=== PATIENT | female | born 1935 | race Caucasian/White ===

== ENCOUNTER → 2016-07-20 16:34 | Outpatient (CLI) | payer MEDICARE, OTHER ==
[2013-11-11 06:41] VITALS: BMI 22.7
[~2016-07-20 16:34] MED LIST: BAYER ASPIRIN325 MG PO; CALCIUM 500 + D1 TAB PO; EVISTA60 MG PO; HYZAAR 100-25 T1 TAB PO; MULTI-DAY VITAM1 TAB PO; PRAVACHOL80 MG PO; TOPROL XL100 MG PO
== END | disposition home or self-care (01) ==
LOC: D.MAMMO 11:00
DX: Z12.31 Encounter for screening mammogram for malignant neoplasm of breast (principal)

== ENCOUNTER → 2017-07-23 13:05 | Outpatient (CLI) | payer MEDICARE, OTHER ==
[2013-11-11 06:41] VITALS: BMI 22.7
== END | disposition home or self-care (01) ==
LOC: D.MAMMO 13:05
DX: Z12.31 Encounter for screening mammogram for malignant neoplasm of breast (principal)

== ENCOUNTER → 2018-05-30 10:27 | Outpatient (CLI) | payer MEDICARE, OTHER ==
[2013-11-11 06:41] VITALS: BMI 22.7
--- NOTE | 2018-06-03 14:01 | EC ---
PATIENT:ABUNDIO JARAMILLO DATE OF SERVICE: 05/30/18 SEX: F MEDICAL RECORD: [id number] DATE OF : 35 LOCATION:D.FORMERLY [facility] AGE OF PATIENT: 82 ADMISSION DATE: 05/30/18 REFERRING PHYSICIAN: INTERPRETING PHYSICIAN: CARMEN BRITO MD ECHOCARDIOGRAM REPORT ECHO CHARGES 4 ECHO COMPLETE Date: 05/30/18 CLINICAL DIAGNOSIS: HTN ECHOCARDIOGRAPHIC MEASUREMENTS (adult normal given) AC root (d.<3.7cm) 3.2 cm LV Septum d (<1.2 cm> 1.3 cm Valve Excursion 1.4 cm LV Septum (systole) 1.5 cm Left Atria (s.<4.0cm> 2.9 cm LVPW d(<1.2cm) 1.3 cm RV (d.<2.3cm) 2.7 cm LVPW (sytole) 1.6 cm LV diastole(<5.6CM) 4.1 cm MV E-F(>70mm/sec) cm LV systole 3.3 cm LVOT Diameter 1.3 cm MV exc.(>10mm) 1.1 cm Est.ejection fraction (50-75%) % DOPPLER: LVIT cm/sec A 85.0 cm/sec E 93.0 cm/sec LA cm/sec RVSP 23 mmHg LVOT 120 cm/sec AOP1/2T m/s Asc. Ao 152 cm/sec RVOT 74 cm/sec RA cm/sec PA 103 cm/sec AV Gradient Peak 9.28 mmHg AV Mean 4.30 mmHg AV Area 1.5 cm MV Gradient Peak 3.73 mmHg MV Mean 1.50 mmHg MV Area cm COMMENTS: Inspector Automatic Typewriter: 2 CARISSA GROSSMAN Telecine Operator: 3 Dr. Veronica TAPE# PACS Pericardial Effusion N DATE OF SERVICE: 05/30/2018 Adequate 2-D echo, color flow and spectral Doppler, and M-mode. Borderline LVH. LV internal dimensions are normal. Wall motion is normal. EF is greater than or equal to 55%. Aortic valve sclerosis without stenosis by Doppler interrogation. Left atrium is normal at 3.9 cm. Mitral valve shows no prolapse. Trace MR. Right-sided chamber is grossly normal. Trace TR. TRANSINT:[id number] Voice Confirmation ID: [id number] DOCUMENT ID: [id number] ECHOCARDIOGRAM REPORT [id number] ABUNDIO JARAMILLO GREGORY A MD at 1401 CC: [id number] DICTATION DATE: 05/31/18 1233 JAILER/TRAINING OFFICER: 05/31/18 1415 DEP CLI 05/30/18 [id number] [place] [address]
== END | disposition home or self-care (01) ==
LOC: D.HCCARDIO 10:27
PROVIDERS: ATTEND Internal Medicine Interventional Cardiology
DX: I10 Essential (primary) hypertension (principal)

== ENCOUNTER → 2018-07-24 16:12 | Outpatient (CLI) | payer MEDICARE, OTHER ==
[2013-11-11 06:41] VITALS: BMI 22.7
== END | disposition home or self-care (01) ==
LOC: D.MAMMO 11:00
PROVIDERS: ATTEND Family Medicine
DX: Z12.31 Encounter for screening mammogram for malignant neoplasm of breast (principal)

== ENCOUNTER → 2019-06-02 12:49 | Outpatient (CLI) | payer MEDICARE, OTHER ==
[2013-11-11 06:41] VITALS: BMI 22.7
--- NOTE | 2019-06-04 11:41 | EC ---
PATIENT:ABUNDIO JARAMILLO DATE OF SERVICE: 06/02/19 SEX: F MEDICAL RECORD: [id number] DATE OF : 35 LOCATION:D.FORMERLY [facility] AGE OF PATIENT: 83 ADMISSION DATE: 06/02/19 REFERRING PHYSICIAN: INTERPRETING PHYSICIAN: CARMEN BRITO MD ECHOCARDIOGRAM REPORT ECHO CHARGES 4 ECHO COMPLETE Date: 06/02/19 CLINICAL DIAGNOSIS: MURMUR/AI H/O HTN/PVD ECHOCARDIOGRAPHIC MEASUREMENTS (adult normal given) AC root (d.<3.7cm) 2.8 cm LV Septum d (<1.2 cm> 1.1 cm Valve Excursion 1.4 cm LV Septum (systole) 1.6 cm Left Atria (s.<4.0cm> 3.2 cm LVPW d(<1.2cm) 1.1 cm RV (d.<2.3cm) 1.9 cm LVPW (sytole) 1.6 cm LV diastole(<5.6CM) 5.4 cm MV E-F(>70mm/sec) cm LV systole 3.5 cm LVOT Diameter 1.6 cm MV exc.(>10mm) cm Est.ejection fraction (50-75%) % DOPPLER: LVIT cm/sec A 87.0 cm/sec E 110 cm/sec LA cm/sec RVSP 36.1 mmHg LVOT 131 cm/sec AOP1/2T m/s Asc. Ao 177 cm/sec RVOT 55.0 cm/sec RA cm/sec PA 108 cm/sec AV Gradient Peak 13.0 mmHg AV Mean 5.8 mmHg AV Area 1.6 cm MV Gradient Peak 5.3 mmHg MV Mean 1.4 mmHg MV Area cm COMMENTS: OP - HC Base Cloth Inspector: 1 BARBI ANDREW Human Resources Benefits Administrator: 3 Dr. Veronica TAPE# PACS Pericardial Effusion N DATE OF SERVICE: Adequate 2D, color flow and spectral Doppler, and M-Mode. No LVH. LV internal dimension is normal. Wall motion is normal. EF is greater than or equal to 55%. Aortic valve is tricuspid. No evidence of stenosis by Doppler interrogation. Left atrium is normal. Mitral valve shows no prolapse. Trivial MR. Right-sided chambers are grossly normal. Trivial TR. TRANSINT:[id number] Voice Confirmation ID: [id number] DOCUMENT ID: [id number] ECHOCARDIOGRAM REPORT [id number] ABUNDIO JARAMILLO GREGORY A MD at 1141 CC: [id number] DICTATION DATE: 06/03/19 1303 TENANT RELATIONS COORDINATOR: 06/03/192034 DEP CLI 06/02/19 [id number] [place] [address]
== END | disposition home or self-care (01) ==
LOC: D.HCCECHO 05-28 14:00
PROVIDERS: ATTEND Internal Medicine Interventional Cardiology
DX: I10 Essential (primary) hypertension (principal)

== ENCOUNTER 2019-08-01 09:00 | Outpatient (CLI) | payer MEDICARE, OTHER ==
[2013-11-11 06:41] VITALS: BMI 22.7
== END 2019-08-01 10:00 | disposition home or self-care (01) ==
LOC: D.MAMMO 09:00
PROVIDERS: ATTEND Internal Medicine
DX: Z12.31 Encounter for screening mammogram for malignant neoplasm of breast (principal)

== ENCOUNTER → 2020-07-26 13:32 | Outpatient (CLI) | payer MEDICARE, OTHER ==
[2013-11-11 06:41] VITALS: BMI 22.7
--- NOTE | ~2020-07-26 | EC ---
PATIENT:ABUNDIO JARAMILLO DATE OF SERVICE: 07/26/20 SEX: F MEDICAL RECORD: [id number] DATE OF : 35 LOCATION:D.FORMERLY [facility] AGE OF PATIENT: 84 ADMISSION DATE: 07/26/20 REFERRING PHYSICIAN: INTERPRETING PHYSICIAN: CARMEN BRITO MD ECHOCARDIOGRAM REPORT ECHO CHARGES 4 ECHO COMPLETE Date: 07/26/20 CLINICAL DIAGNOSIS: HX OF HTN/CAD/PVD ASSESS EF AND VALVES ECHOCARDIOGRAPHIC MEASUREMENTS (adult normal given) AC root (d.<3.7cm) 3.2 cm LV Septum d (<1.2 cm> 1.3 cm Valve Excursion 1.5 cm LV Septum (systole) 1.4 cm Left Atria (s.<4.0cm> 3.5 cm LVPW d(<1.2cm) 1.4 cm RV (d.<2.3cm) 2.8 cm LVPW (sytole) 1.7 cm LV diastole(<5.6CM) 4.4 cm MV E-F(>70mm/sec) cm LV systole 2.6 cm LVOT Diameter 1.6 cm MV exc.(>10mm) 1.2 cm Est.ejection fraction (50-75%) % DOPPLER: LVIT cm/sec A 83.0 cm/sec E 117.0 cm/sec LA cm/sec RVSP 32 mmHg LVOT 118 cm/sec AOP1/2T m/s Asc. Ao 122 cm/sec RVOT 99 cm/sec RA cm/sec PA 129 cm/sec AV Gradient Peak 13.24mmHg AV Mean 6.45 mmHg AV Area 1.4 cm MV Gradient Peak 6.33 mmHg MV Mean 2.11 mmHg MV Area cm COMMENTS: Swimming Pool Service Technician: 2 CARISSA GROSSMAN Manager Advertising: 3 Dr. Veronica TAPE# PACS Pericardial Effusion N DATE OF SERVICE: Adequate 2D, color-flow imaging, spectral Doppler, and M-Mode. FINDINGS: Mild LVH. LV internal dimensions are normal. Wall motion is normal. EF is greater than or equal to 55%. Aortic valve is sclerotic. No evidence of stenosis by Doppler interrogation. Left atrium is normal at 3.5 cm. Mitral valve shows no prolapse. Trace MR. Right side is grossly normal. Mild TR. TRANSINT:[id number] Voice Confirmation ID: [id number] DOCUMENT ID: [id number] ECHOCARDIOGRAM REPORT [id number] ABUNDIO JARAMILLO GREGORY A MD CC: [id number] DICTATION DATE: 07/27/20 155 DATA STEWARD: 07/27/202103 DEP CLI 07/26/20 [id number] [place] [id number]
== END | disposition home or self-care (01) ==
LOC: D.HCCECHO 13:30
PROVIDERS: ATTEND Internal Medicine Interventional Cardiology
DX: I10 Essential (primary) hypertension (principal)

== ENCOUNTER 2020-08-02 13:00 | Outpatient (CLI) | payer MEDICARE, OTHER ==
[2013-11-11 06:41] VITALS: BMI 22.7
== END 2020-08-02 23:59 | disposition home or self-care (01) ==
LOC: D.MAMMO 13:00
PROVIDERS: ATTEND Internal Medicine
DX: Z12.31 Encounter for screening mammogram for malignant neoplasm of breast (principal)